=== PATIENT | female | born 1940 | race Caucasian/White ===

== ENCOUNTER 2017-08-29 08:49 | Emergency (ER) | payer OTHER ==
[2017-08-29 08:57] VITALS: RESP 16; TEMP 97.7
--- NOTE | 2017-08-29 09:51 | EDPHY ---
H & P Smoking Status: Former smoker Time Seen by Provider: 08/29/17 09:03 HPI/ROS: CHIEF COMPLAINT: Left arm injury HISTORY OF PRESENT ILLNESS: 77-year-old female presents to the emergency department by private vehicle with injury to her left arm. The patient was walking this morning and slipped on some ice and fell directly on her left shoulder. She did not hit her head or lose consciousness. Denies headache. Denies neck or back pain. Denies chest pain or difficulty breathing. Denies visual changes. Denies numbness or tingling in her upper or lower extremities. She complains of isolated pain to the left humerus and shoulder area. Right- hand dominant. No injury to the lower extremities. No abdominal pain. No vomiting. The incident happened just prior to arrival. REVIEW OF SYSTEMS: Constitutional: No fever, no chills. Eyes: No double or blurry vision. ENT: No sore throat. Respiratory: No cough, no shortness of breath. Cardiac: No chest pain. Gastrointestinal: No abdominal pain, vomiting or diarrhea. Genitourinary: No dysuria. Musculoskeletal: No neck or back pain. Skin: No rashes. Neurological: No headache. (Angeline Clark) Past Medical/Surgical History: Osteoarthritis, "stomach problems" (Angeline Clark) Social History: (Angeline Clark) Physical Exam: General Appearance: Alert, no distress. No visible signs of trauma to her head. She is mentating normally and answering questions appropriately. Eyes: Pupils equal and round. Extraocular motions are all intact. ENT: Mouth: Mucous membranes moist. Respiratory: No wheezing, rhonchi, or rales, lungs are clear to auscultation. Cardiovascular: Regular rate and rhythm. Gastrointestinal: Abdomen is soft and nontender, no masses, no rebound or guarding, bowel sounds normal. Neurological: Alert and oriented x 3, cranial nerves II through XII grossly intact Skin: Warm and dry, no rashes. Musculoskeletal: Nontender to palpate along the cervical, thoracic or lumbar spine. Neck is supple. Extremities: Limited range of motion of the left shoulder and left elbow secondary to pain. She has reproducible pain with palpation to the left mid humerus up to the left humeral head on the left side. No palpable crepitus or other bony abnormality. The patient however is unable to move her left shoulder without significant discomfort. She is able to supinate and pronate her left wrist. Unable to fully extend her left elbow secondary to pain in her left shoulder. Normal sensation to light touch with normal 2 point discrimination. Strong radial pulse at the left wrist. Full range of motion of the right upper extremity and lower extremities bilaterally. Psychiatric: Patient is oriented X 3, there is no agitation. (Angeline Clark) Constitutional: Initial Vital Signs Temperature (C) 36.5 C 08/29/17 08:49 Heart Rate 56 L 08/29/17 08:49 Respiratory Rate 16 08/29/17 08:49 Blood Pressure 136/73 H 08/29/17 08:49 O2 Sat (%) 94 08/29/17 08:49 O2 Delivery Mode Room Air Allergies/Adverse Reactions: acetaminophen [From Percocet] Allergy (Mild, Verified 08/29/17 08:57) GI oxycodone [From Percocet] Allergy (Mild, Verified 08/29/17 08:57) GI Sulfa (Sulfonamide Antibiotics) Allergy (Unknown, Verified 08/29/17 08:57) egg [eggs] Allergy (Verified 08/29/17 08:57) Home Medications: Medication Instructions Recorded Famotidine [Pepcid 20 MG (*)] 20 mg PO BID 08/29/17 Lidocaine 5% [Lidoderm 5% Patch 1 ea TD DAILY #5 patch 08/29/17 (*)] celeCOXIB [Celebrex (*)] 200 mg PO 08/29/17 oxyCODONE/APAP 5/325 [Percocet 1 - 2 tab PO Q4-6PRN PRN #15 tab 08/29/17 5/325] Medical Decision Making - Diagnostics Imaging: I viewed and interpreted images myself - Diagnostics Imaging Results: Imaging Impressions Humerus X-Ray 08/29/17 09:47 Impression: Acute fracture of the surgical neck of the proximal left humerus. Left Humerus (2 Views, at 10:07 AM): The previously-described proximal humeral fracture demonstrates some impaction and a mild degree of medial apex angulation. The humeral diaphysis and visualized radial and ulnar diaphyses are intact. Impression: Surgical neck fracture of the proximal humerus. Shoulder X-Ray 08/29/17 09:47 Impression: Acute fracture of the surgical neck of the proximal left humerus. Left Humerus (2 Views, at 10:07 AM): The previously-described proximal humeral fracture demonstrates some impaction and a mild degree of medial apex angulation. The humeral diaphysis and visualized radial and ulnar diaphyses are intact. Impression: Surgical neck fracture of the proximal humerus. Procedures: Patient was placed in a sling and examined post application in good placement with normal SERVICE DISMANTLER. (Angeline Clark) ED Course/Re-evaluation: The patient was evaluated and managed by the physician's medical office assistant instructor. My cosignature indicates that I reviewed the chart and I agree with the findings and plan of care as documented. I am the secondary supervising physician. ( Ana Garcia) 77-year-old female presents to the emergency department with left arm injury. X- rays reveal left humeral neck fracture. The patient is in a great deal of pain, however she is unable to take pain medication. She has taken Percocet in the past however she thinks that she became nauseous because she took this on an empty stomach. She elected to wait for any pain medication at this time. Patient was placed in a sling and given orthopedic referral. Patient requested a prescription for Percocet. She understands that she should be taking this with food. She was also instructed to return to the emergency department if she developed difficulty breathing, difficulty swallowing, or any other concerns. (Angeline Clark) Differential Diagnosis: Including but not limited to fracture, dislocation, contusion, sprain (Angeline Clark) Departure - Departure Disposition: Home, Routine, Self-Care Clinical Impression: Fracture of neck of left humerus Qualifiers: Encounter type: initial encounter Fracture type: closed Qualified Code(s): S42.212A - Unspecified displaced fracture of surgical neck of left humerus, initial encounter for closed fracture Condition: Good Instructions: Arm Fracture in Adults (ED) Additional Instructions: Sling for comfort and support. Percocet as needed for severe pain. Take this with a full stomach as discussed. Lidocaine patches for pain relief as well. Return if you feel numbness or tingling in your fingers or if you feel worse in any way Referrals: Noelle Anand MD [Primary Care Provider] - As per Instructions Teto Worthington MD [Medical Doctor] - 2-3 days without fail ([facility] orthopedic surgeon on-call) Gael Padron MD [Medical Doctor] - 2-3 days without fail Prescriptions: Lidocaine 5% [Lidoderm 5% Patch (*)] 1 ea TD DAILY #5 patch oxyCODONE/APAP 5/325 [Percocet 5/325] 1 - 2 tab PO Q4-6PRN PRN #15 tab PRN Reason: For Moderate To Severe Pain
[2017-08-29 11:27] VITALS: BP 170/86; PULSE 102; O2SAT 92
== END 2017-08-29 11:30 | disposition home or self-care (01) ==
DX: S42.212A Unspecified displaced fracture of surgical neck of left humerus, initial encounter for closed fracture (principal); Z87.891 Personal history of nicotine dependence; W00.0XXA Fall on same level due to ice and snow, initial encounter; Y93.01 Activity, walking, marching and hiking
CPT/HCPCS: 73030; 73060; 99284; A4565

== ENCOUNTER → 2017-08-30 | Outpatient (CLI) | payer OTHER | LOC: FIMAGING 11:04 | PROVIDERS: ATTEND Orthopaedic Surgery | DX: S42.252D Displaced fracture of greater tuberosity of left humerus, subsequent encounter for fracture with routine healing (principal); M19.012 Primary osteoarthritis, left shoulder; I25.10 Atherosclerotic heart disease of native coronary artery without angina pectoris ==

== ENCOUNTER → 2018-01-09 | Outpatient (CLI) | payer OTHER | LOC: FIMAGING 15:06 | PROVIDERS: ATTEND Orthopaedic Surgery | DX: Z01.818 Encounter for other preprocedural examination (principal); M17.11 Unilateral primary osteoarthritis, right knee; K57.30 Diverticulosis of large intestine without perforation or abscess without bleeding ==

== ENCOUNTER 2018-02-01 07:01 | Observation (INO) | payer OTHER ==
[~2018-02-01 07:01] MED LIST: ROPIVACAINE 0.2% 80 MG, EPINEPHrine 0.2 MG, KETOROLAC TROMETHAMINE 30 MG in SYRINGE 0 ML IU ONE; TRANEXAMIC ACID 3,000 MG in NS (SYRINGE) 50 ML IRR ONE
--- NOTE | 2018-02-01 07:15 | PDHPUP ---
History & Physical Update H&P update statement: This history and physical update is based on an assessment of the patient which was completed after admission or registration (within 24 hours), but prior to the surgery/procedure. H&P update: H&P reviewed & patient examined, no change in patient's condition since H&P completed
[2018-02-01] MEDS ORDERED: ceFAZolin 2 GM/DEXTROSE 100 ML IV ONE (07:42)
[2018-02-01] MEDS ORDERED: FAMOTIDINE 20 MG TAB PO ONE (07:42)
[2018-02-01] MEDS ORDERED: ACETAMINOPHEN 325 MG TAB PO ONE (07:42)
[2018-02-01] MEDS ORDERED: DEXAMETHASONE 4 MG/ML VIAL IVP ONE (07:42)
[2018-02-01] MEDS ORDERED: LIDOCAINE 1% 2 ML INJ ID PRN (07:44)
[2018-02-01] MEDS ORDERED: LR 1,000 ML IV ONE (07:44)
[2018-02-01] MEDS ORDERED: TRANEXAMIC ACID 3,000 MG/50 ML BAG IRR ONE (07:58)
--- NOTE | 2018-02-01 09:07 | PDANEPAE ---
ANE History of Present Illness r knee oa ANE Past Medical History - Cardiovascular History Hx Hypertension: No Hx Arrhythmias: No Hx Chest Pain: No Hx Coronary Artery / Peripheral Vascular Disease: No Hx CHF / Valvular Disease: No Hx Palpitations: No - Pulmonary History Hx COPD: No Hx Asthma/Reactive Airway Disease: No Hx Recent Upper Respiratory Infection: No Hx Oxygen in Use at Home: No Hx Sleep Apnea: No Sleep Apnea Screening Result - Last Documented: Negative - Neurologic History Hx Cerebrovascular Accident: No Hx Seizures: No Hx Dementia: No - Endocrine History Hx Diabetes: No - Renal History Hx Renal Disorders: No Renal History Comment: KIDNEY STONE X1 - Liver History Hx Hepatic Disorders: No - Neurological & Psychiatric Hx Hx Neurological and Psychiatric Disorders: No - Cancer History Hx Cancer: No - Congenital Disorder History Hx Congenital Disorders: No - GI History Hx Gastrointestinal Disorders: No - Other Health History Other Health History: NEG - Chronic Pain History Chronic Pain: Yes (R KNEE) - Surgical History Prior Surgeries: C SECTION. BREAST BX X2 L. FX SHOULDER - NO SURG ANE Review of Systems Review of Systems: - Exercise capacity METS (RN): 4 METS ANE Patient History - Allergies Allergies/Adverse Reactions: acetaminophen [From Percocet] Allergy (Mild, Verified 08/29/17 08:57) GI oxycodone [From Percocet] Allergy (Mild, Verified 08/29/17 08:57) GI Sulfa (Sulfonamide Antibiotics) Allergy (Unknown, Verified 01/16/18 10:51) Rash diazepam [From Valium] Allergy (Verified 01/16/18 10:52) DEPRESSION egg [eggs] Allergy (Verified 08/29/17 08:57) scopolamine [From Transderm-Scop] Allergy (Verified 01/16/18 10:52) Vomiting watermelon Allergy (Verified 01/16/18 10:51) - Home Medications Home Medications: celeCOXIB [Celebrex (*)] 200 mg PO DAILY 08/29/17 [Last Taken 01/31/18] Acetaminophen [Tylenol ES 500 mg (*)] 500 mg PO Q8HRS PRN 01/16/18 [Last Taken 01/31/18 11:00] Cholecalciferol Vit D3 [Vitamin D3 (*)] 500 units PO DAILY 01/16/18 [Last Taken 01/25/18] Cyanocobalamin [Vitamin B12 (*)] 1,000 mcg PO DAILY 01/16/18 [Last Taken ] Pseudoephedrine HCl [Sudafed] 30 mg PO HS PRN 01/16/18 [Last Taken 01/27/18] RX: Herbals/Supplements -Info Only 1 ea PO DAILY 01/16/18 [Last Taken 01/25/18] diphenhydrAMINE [Benadryl 25 MG (*)] 25 mg PO HS PRN 01/16/18 [Last Taken ] - NPO status NPO Since - Liquids (Date): 02/01/18 NPO Since - Liquids (Time): 05:30 NPO Since - Solids (Date): 01/31/18 NPO Since - Solids (Time): 22:00 - Smoking Hx Smoking Status: Former smoker - Family Anes Hx Family Hx Anesthesia Complications: NEG ANE Labs/Vital Signs - Vital Signs Blood Pressure: 180/85 Heart Rate: 62 Respiratory Rate: 16 O2 Sat (%): 97 Height: 162.56 cm Weight: 62.596 kg ANE Physical Exam - Airway Neck exam: FROM Mallampati Score: Class 1 Mouth exam: normal dental/mouth exam - Pulmonary Pulmonary: no respiratory distress - Cardiovascular Cardiovascular: regular rate and rhythym - ASA Status ASA Status: II ANE Anesthesia Plan Anesthesia Plan: MAC, spinal Regional Anesthesia: adductor canal FNB
[2018-02-01] MEDS ORDERED: fentaNYL 100 MCG/2 ML INJ ONE ×3 (09:13→10:52)
[2018-02-01] MEDS ORDERED: PROPOFOL/EMULSION 500 MG/50 ML BOTTLE IV ONE (09:13)
[2018-02-01] MEDS ORDERED: ONDANSETRON 4 MG/2 ML VIAL ONE (09:54)
[2018-02-01] MEDS ORDERED: DEXAMETHASONE 4 MG/ML VIAL ONE (09:54)
[2018-02-01] MEDS ORDERED: ROPIVACAINE HCL 150 MG/30 ML INJ ONE (09:54)
[2018-02-01] MEDS ORDERED: PHENYLEPHRINE HCL 100 MCG/ML SYR ONE (09:54)
[2018-02-01] MEDS ORDERED: PROMETHAZINE HCL 25 MG/ML INJ IVP PRN ×2 (10:12→10:36)
[2018-02-01] MEDS ORDERED: NALOXONE HCL 0.4 MG/ML INJ IVP PRN (10:12)
[2018-02-01] MEDS ORDERED: ONDANSETRON 4 MG/2 ML VIAL IVP PRN ×2 (10:12→10:36)
[2018-02-01] MEDS ORDERED: HYDROmorphONE/DILAUDID 1 MG/ML INJ IVP PRN (10:12)
[2018-02-01] MEDS ORDERED: BISACODYL 10 MG SUPP PR PRN (10:36)
[2018-02-01] MEDS ORDERED: MAGNESIUM HYDROXIDE 30 ML UDCUP PO PRN (10:36)
[2018-02-01] MEDS ORDERED: METOCLOPRAMIDE 10 MG/2 ML VIAL IVP PRN (10:36)
[2018-02-01] MEDS ORDERED: LACTULOSE 20 GM/30 ML UDCUP PO PRN (10:36)
[2018-02-01] MEDS ORDERED: PROMETHAZINE HCL 25 MG SUPPR PR PRN (10:36)
[2018-02-01] MEDS ORDERED: DIPHENOXYLATE/ATROPINE LOMOTIL 1 TAB PO PRN (10:36)
[2018-02-01] MEDS ORDERED: diphenhydrAMINE 25 MG CAP PO PRN (10:36)
[2018-02-01] MEDS ORDERED: TEMAZEPAM 15 MG CAP PO PRN (10:36)
[2018-02-01] MEDS ORDERED: CYCLOBENZAPRINE 10 MG TAB PO PRN (10:36)
[2018-02-01] MEDS ORDERED: POLYETHYLENE GLYCOL 3350 17 GM PKT PO PRN (10:36)
[2018-02-01] MEDS ORDERED: ONDANSETRON DISINTEGRATING 4 MG TAB PO PRN (10:36)
--- NOTE | 2018-02-01 10:36 | POSTOPPROG ---
Post Op Note Date of Operation: 02/01/18 Surgeon: Foster Bhardwaj Obgyn Nurse: siena bhardwaj Anesthesiologist: dr. calvin Anesthesia: Spinal, Other (Specify) (adductor canal block) Pre-op Diagnosis: right knee OA Post-op Diagnosis: right knee OA Indication: Right knee pain Procedure: R TKA robot assisted, sensor assisted, computer navigation Findings: R knee severe OA Inf/Abcess present in the surg proc area at time of surgery?: No EBL: 50-100
--- NOTE | 2018-02-01 10:48 | POSTANESTH ---
Post Anesthetic Evaluation Cardiovascular Status: Normal, Stable Respiratory Status: Normal, Stable Level of Consciousness/Mental Status: Can Participate in Eval Pain Control: Adequate, Prn Tx Ordered Nausea/Vomiting Control: Adequate, Prn Tx Ordered Complications Possibly Related to Anesthesia: None Noted
[2018-02-01] MEDS: fentaNYL 100 MCG/2 ML INJ IVP PRN ×2 (10:54→11:15)
[2018-02-01] MEDS ORDERED: LR 1,000 ML IV SCH (11:00)
[2018-02-01] MEDS: ACETAMINOPHEN 325 MG TAB PO SCH ×2 (11:43→17:11)
[2018-02-01] MEDS: ceFAZolin 2 GM/DEXTROSE 100 ML IV SCH (16:36)
[2018-02-01] MEDS: HYDROmorphONE/DILAUDID 2 MG TAB PO PRN ×2 (17:11→22:18)
[2018-02-01] MEDS: SENNOSIDES/DOCUSATE SODIUM TAB PO SCH (21:46)
[2018-02-01] MEDS: ASPIRIN 81 MG CHEWABLE TAB PO SCH (21:46)
[2018-02-01] MEDS: FAMOTIDINE 20 MG TAB PO SCH (21:46)
[2018-02-02] MEDS: ceFAZolin 2 GM/DEXTROSE 100 ML IV SCH (01:21)
[2018-02-02] MEDS: ACETAMINOPHEN 325 MG TAB PO SCH ×2 (01:30→05:06)
[2018-02-02] MEDS: HYDROmorphONE/DILAUDID 2 MG TAB PO PRN ×2 (03:12→09:20)
[2018-02-02 08:29] VITALS: BP 146/47
[2018-02-02] MEDS: SENNOSIDES/DOCUSATE SODIUM TAB PO SCH (09:11)
[2018-02-02] MEDS: FAMOTIDINE 20 MG TAB PO SCH (09:12)
[2018-02-02] MEDS: ASPIRIN 81 MG CHEWABLE TAB PO SCH (09:12)
--- NOTE | 2018-02-02 09:38 | SOAPPROG ---
SOAP Progress Note Assessment/Plan: Assessment: Patient is doing well POD 1 s/p R TKA Pain management: pain is well controlled on oral pain meds. VTE ppx: recommend aspirin 81 mg BID for 4 weeks, cont ES and SCDs Anemia: level is expected initially postop. Asymptomatic. Continue to monitor D/c planning: d/c to home today pending release from PT Plan: 02/02/18 09:36 Subjective: Eliza is doing well today, denies SOB, chest pain and N/V. patient states she was told by day RN yesterday that she could not get her out of bed because she has to first get out of bed by PT and she was up on the floor too late for PT eval. patient states night nurse aide got her up and walking though. Objective: Vital Signs Temp Pulse Resp BP Pulse Ox 36.8 C 74 16 146/47 H 95 02/02/18 08:00 02/02/18 08:00 02/02/18 08:00 02/02/18 08:00 02/02/18 08:00 Laboratory Results 02/02/18 05:02 02/02/18 05:02 02/01/18 02/02/18 02/03/18 05:59 05:59 05:59 Intake Total 860 Output Total 2300 200 Balance -1440 -200 RLE: incision dressing is clean and dry, NVI, +pf/df ICD10 Worksheet Patient Problems: Problems Problem Status Onset Primary localized osteoarthritis of right knee Acute
--- NOTE | 2018-02-02 10:56 | GDS ---
[f rep st] DISCHARGE SUMMARY ADMISSION DIAGNOSIS: Right knee osteoarthritis. DISCHARGE DIAGNOSIS: Right knee osteoarthritis. PROCEDURE: Right total knee arthroplasty, robotic-assisted, with computer navigation. VTE PROPHYLAXIS: Recommend aspirin 81 mg twice a day for 4 weeks. BRIEF DESCRIPTION OF HOSPITAL STAY: Patient was admitted for an elective joint arthroplasty. The pa dara tolerated the procedure well and has passed physical therapy. The patient was given appropriat e antibiotic prophylaxis and venous thromboembolism prophylaxis. The patient's pain was well control led on oral pain medication, patient was holding down food, and had urinated. Decision was made to d ischarge the patient. The patient was given post-operative prescriptions pre-operatively. PLAN: Follow up as scheduled in Dr. Coe's office February 23 at 11:15. /[id number]/MODL
--- NOTE | 2018-02-02 11:11 | GOP ---
[f rep st] OPERATIVE REPORT DATE OF OPERATION: SURGEON: Xenia Coe MD DRY KILN OPERATOR HELPER: Danette Coe PA-C ANESTHESIA: Spinal. PREOPERATIVE DIAGNOSIS: Right knee osteoarthritis. POSTOPERATIVE DIAGNOSIS: Right knee osteoarthritis. PROCEDURE PERFORMED: Right total knee arthroplasty with computer navigation, robotic assist. FINDINGS: ESTIMATED BLOOD LOSS: 30 cc INDICATIONS: The patient is a 77-year-old female with severe and progressive pain and deformity of t he right knee unresponsive to conservative care. The risks and benefits of surgical intervention wer e explained in detail. DESCRIPTION OF PROCEDURE: The patient was brought to the operative room and placed on the table in t he supine position. Spinal anesthesia was induced without difficulty. A pneumatic tourniquet was appl ied about the right proximal thigh, and the leg was prepped and draped in a sterile fashion. The leg dodd was applied. After exsanguination by elevation the tourniquet was inflated to 250 mmHg. Incision was made anterior medial from the tibial tuberosity to a point 2 cm proximal to the superior pole of the patella. Medial parapatellar arthrotomy was carried out from the superior pole of the pa tella and posteriorly in line with the fibers of the Type II VMO. The medial collateral ligament was elevated and the infrapatellar fat pad was resected. The patella was everted and the articular surface was excised. A 32 mm patellar button was placed. Attention was turned first to the distal aspect of the femur. After exposure of the femur, 2 half pi ns were placed for fixation of the femoral array. In a similar fashion, 2 pins were placed anteromed ial on the tibia for fixation of the tibial array. External land marking and registration of the hip center was performed without difficulty. Internal femoral and tibial registration was carried out w ithout difficulty and the femoral and tibial checkpoints were placed and verified for accuracy. Attention was turned to the femur. The foot print for the size 3 femoral component was cut with the saw using the [employer] robotic system and verified for accuracy against the CT based plan. In a similar f ashion, the saw was used to cut the footprint for the size 3 tibial component using the [employer] system an d verified for accuracy against the CT based plan. The tibial articular surface was excised without d ifficulty, followed by the intercondylar box cut. The knee was extended and the remnants of the medial and lateral meniscus were excised. The posterior capsule was injected with ropivacaine, epinephrine and Toradol. A size 3 tibial tray was positioned . Trial reduction was then carried out. There was excellent range of motion, alignment, and stability using the 3 x 9 mm polyethylene. All trials were then removed. The joint was thoroughly irrigated and carefully dried. The Press Fit c omponents were implanted. The permanent 9 mm polyethylene was placed without difficulty. The tourniquet was deflated and all bleeders were coagulated. The wound was thoroughly irrigated and closed using interrupted sutures of 2-0 Vicryl for the joint capsule. The subcu was closed with 3-0 V icryl and the skin with 4-0 Monocryl. Dermabond and Steri-Strips were applied followed by a compress letitia dressing. The patient was then moved from the operating room to the recovery room in good conditi on, having tolerated the procedure well. PATHOLOGY: Severe patellofemoral osteoarthritis. /[id number]/MODL
== END 2018-02-02 11:00 | disposition home or self-care (01) ==
LOC: F3N 07:01
PROVIDERS: ADMIT Orthopaedic Surgery; ATTEND Orthopaedic Surgery
PROC: 8E0Y0CZ Robotic Assisted Procedure of Lower Extremity, Open Approach (ICD-10-PCS; principal; 2018-02-01 09:15)
PROC: 8E0YXBG Computer Assisted Procedure of Lower Extremity, With Computerized Tomography (ICD-10-PCS; principal; 2018-02-01 09:15)
PROC: 0SRC06Z Replacement of Right Knee Joint with Oxidized Zirconium on Polyethylene Synthetic Substitute, Open Approach (ICD-10-PCS; principal; 2018-02-01 09:15)
DX: M17.11 Unilateral primary osteoarthritis, right knee (principal)
CPT/HCPCS: 27447; 73560; 88311; 97110; 97116; 97161; 97165; C1776; G8978; G8979; G8980; G8987; G8988; G8989; J0171; J0690; J1100; J1885; J2370; J2405; J2704; J2795; J3010